=== PATIENT | female | born 1935 | race Caucasian/White ===

== ENCOUNTER → 2018-04-17 | Outpatient (CLI) | payer MEDICARE ==
[~2018-04-17] MED LIST: ASPIRIN LOW DOS81 MG PO; D3; MEGA RED; VICODIN ES TAB1 EACH PO; Z JANUMET; Z.0.COQ-10100 MG PO; Z.0.LEVOTHYROXINE25 PO
--- NOTE | 2018-04-17 14:24 | Diagnostic Imaging Report ---
EXAM: US THYROID DATE: 04/17/2018 1:04 PM INDICATION: Thyroid nodule COMPARISON: Thyroid ultrasound, 04/11/2012 FINDINGS: Grayscale and color flow Doppler ultrasound of the thyroid was performed. Right lobe: 3.6 x 0.7 x 0.9 cm. Color flow vascularity is normal. Homogeneous echotexture. No nodules. Left lobe: 4.4 x 2.2 x 1.6 cm. Color flow vascularity is slightly increased compared to the right. Homogeneous echotexture. Nodule: Mid to lower left lobe: 3.4 x 2.0 x 1.6 cm (previous 4.0 x 2.4 x 2.0 cm). Mixed cystic and solid, isoechoic, wider than tall, smooth margins, macrocalcifications. TR3c. IMPRESSION: 1. Dominant left thyroid nodule has diminished slightly in size since 2012. Although considered mildly suspicious by ACR criteria, decreased size over the past 6 years suggests a benign etiology. Follow-up ultrasound in one year recommended. 2. No new thyroid nodules. ACR TI-RADS Lexicon: TR1, Benign: No FNA TR2, Not Suspicious: No FNA. TR3a (<1.5 cm): No follow-up. TR3b (1.5-2.5 cm), Mildly Suspicious: Follow at 1, 3, 5 years. TR3c (>2.5 cm), Mildly Suspicious: FNA. TR4a (<1.0 cm): No follow-up. TR4b (1.0-1.5 cm), Moderately Suspicious: Follow at 1, 2, 3, 5 years. TR4c (>1.5 cm), Moderately Suspicious: FNA. TR5a (<0.5 cm): No follow-up. TR5b (0.5-1.0 cm), Highly Suspicious: Follow at 1, 2, 3, 4, 5 years. TR5c (>1.0 cm), Highly Suspicious: FNA. Literature: ACR Thyroid Imaging, Reporting and Data System (TI-RADS): White Paper of the ACR TI-RADS Committee. J Am Jayna Radiol 2017. Signed by: Dr. Marty Walsh M.D. on 04/17/2018 2:21 PM
== END ==
LOC: US 12:52
PROVIDERS: ATTEND Otolaryngology
DX: E04.1 Nontoxic single thyroid nodule (principal)
CPT/HCPCS: 76536

== ENCOUNTER 2020-12-16 12:20 | Emergency (ER) | payer MEDICARE, OTHER ==
[~2020-12-16] VITALS: Ht 162.6 cm; Wt 51.3 kg
[2020-12-16 12:42] LABS: BASOPHILS # (AUTO) 0.1 (0.0-0.1); BASOPHILS % 0.6 % (0.0-1.0); EOSINOPHILS # (AUTO) 0.2 (0.0-0.4); HEMATOCRIT 40.8 % (34.2-44.1); HEMOGLOBIN 13.2 g/dL (12.0-16.0); MEAN CORPUSCULAR HEMOGLOBIN 28.6 pg (28-32); MEAN CORPUSCULAR HGB CONC 32.4 g/dL (31-35); MEAN CORPUSCULAR VOLUME 88.5 fL (81-99); MONOCYTES # (AUTO) 0.9 (0.2-0.8); MONOCYTES % 11.2 % (4.4-11.3); PLATELET COUNT 125 x10e3/uL (140-360); RED BLOOD COUNT 4.61 x10e6/uL (3.6-5.1); RED CELL DISTRIBUTION WIDTH 12.8 % (11.7-14.4)
[2020-12-16] MEDS ORDERED: HYDRALAZINE HCL 20 MG/ML VIAL IV NR (13:30)
[2020-12-16 13:33] LABS: ALBUMIN 4.2 g/dL (3.5-5.0); ALBUMIN/GLOBULIN RATIO 1.3 (0.8-2.0); ANION GAP 16.6 mmol/L (8-16); CALCIUM 9.3 mg/dL (8.4-10.2); CREATININE, SERUM 0.97 mg/dL (0.57-1.11); POTASSIUM 4.6 mmol/L (3.5-5.1)
[2020-12-16 13:44] LABS: CLARITY,URINE CLEAR (CLEAR); COLOR,URINE YELLOW (YELLOW); KETONES,URINE NEGATIVE (NEGATIVE); LEUKOCYTE ESTERASE ,URINE SMALL (NEGATIVE); NITRITE,URINE NEGATIVE (NEGATIVE); PROTEIN,URINE DIPSTICK NEGATIVE (NEGATIVE); URINE UROBILINOGEN 0.2 mg/dL (0.2 - 1)
[2020-12-16 14:11] LABS: EPITHELIAL CELLS,URINE FEW /LPF; RBC,URINE 0-5 /HPF (0-5)
== END 2020-12-16 15:26 | disposition home or self-care (01) ==
LOC: ER 12:29
DX: I10 Essential (primary) hypertension (principal); R20.2 Paresthesia of skin
CPT/HCPCS: 36415; 70450; 71045; 80053; 81001; 85025; 99284